=== PATIENT | male | born 1965 | race African-American/Black ===

== ENCOUNTER 2024-12-14 18:50 | Emergency (ER) | payer OTHER ==
[~2024-12-14] VITALS: Ht 177.8 cm; Wt 125.6 kg
[2024-12-14 19:08] VITALS: PULSE 78; TEMP 98.5
[2024-12-14] MEDS ORDERED: IOPAMIDOL 370 MG/ML 100 ML INFUS..BTL INJ ONE (19:45)
[2024-12-14] MEDS: Morphine 4mg INJECTION 4 MG/ML INJ IV ONE ×2 (20:33→22:25)
[2024-12-14] MEDS: HYDROMORPHONE 1MG/1ML INJ IV STA (22:07)
[2024-12-14] MEDS: KETOROLAC TROMETHAMINE 30 MG/ML VIAL IV STA (22:14)
[2024-12-14 22:22] VITALS: RESP 16
[2024-12-14] MEDS ORDERED: HYDROCODON-ACE1 EA11 PO (23:01)
[2024-12-14 23:08] VITALS: BP 130/60; PULSE 76; RESP 18; TEMP 98.7; O2SAT 98
== END 2024-12-14 23:11 | disposition home or self-care (01) ==
LOC: FSED 19:31
DX: R10.30 Lower abdominal pain, unspecified (principal); E66.9 Obesity, unspecified; F17.210 Nicotine dependence, cigarettes, uncomplicated
CPT/HCPCS: 74177; 80053; 81003; 85025; 99284; J1885; J2270; Q9967

== ENCOUNTER 2025-01-03 11:03 | Emergency (ER) | payer OTHER ==
[~2025-01-03] VITALS: Ht 177.8 cm; Wt 123.4 kg
[~2025-01-03 11:03] MED LIST: HYDROCODON-ACE1 EA11 PO
[2025-01-03] MEDS ORDERED: METHOCARBAMOL750 MG PO (11:48)
[2025-01-03] MEDS ORDERED: ULTRAM 50MG50 MG PO (11:48)
[2025-01-03] MEDS: DEXAMETHASONE SOD PHOS INJ 4 MG/ML SDV IM ONE (11:49)
[2025-01-03] MEDS: CYCLOBENZAPRINE HCL 10 MG TAB PO ONE (11:50)
[2025-01-03] MEDS: KETOROLAC TROMETHAMINE 30 MG/ML VIAL IM STA (11:51)
[2025-01-03] MEDS: HYDROCODONE/APAP 5MG-325MG TAB PO ONE (11:51)
[2025-01-03 11:53] VITALS: PULSE 60; RESP 18; TEMP 97.4; O2SAT 99
[2025-01-06] MEDS ORDERED: BACLOFEN10 MG PO (10:58)
[2025-01-06] MEDS ORDERED: PREDNISONE20 MG PO (10:59)
[2025-01-06] MEDS ORDERED: ULTRAM 50MG50 MG PO (11:00)
[2025-01-06] MEDS ORDERED: KETOROLAC TROME10 MG PO (11:04)
== END 2025-01-03 11:57 | disposition home or self-care (01) ==
LOC: FSED 11:07
DX: M54.31 Sciatica, right side (principal); E66.9 Obesity, unspecified; Z96.652 Presence of left artificial knee joint; F17.210 Nicotine dependence, cigarettes, uncomplicated
CPT/HCPCS: 96372; 99283; J1100; J1885

== ENCOUNTER 2025-01-28 20:25 | Emergency (ER) | payer OTHER ==
[~2025-01-28] VITALS: Ht 177.8 cm; Wt 127.9 kg
[~2025-01-28 20:25] MED LIST changes: +BACLOFEN10 MG PO; +KETOROLAC TROME10 MG PO; +METHOCARBAMOL750 MG PO; +PREDNISONE20 MG PO; +ULTRAM 50MG50 MG PO
[2025-01-28 20:29] VITALS: PULSE 84; RESP 18; TEMP 98.7
[2025-01-28] MEDS: SODIUM CHLORIDE 0.9% 500ML 500 ML IV STA (21:26)
[2025-01-28] MEDS: ONDANSETRON HCL INJ 2MG/ML 2ML 2 MG/ML VIAL IV ONE (21:26)
[2025-01-28] MEDS: FAMOTIDINE 20 MG/2 ML VIAL IV ONE (21:26)
[2025-01-28] MEDS: KETOROLAC TROMETHAMINE 30 MG/ML VIAL IV ONE (21:27)
[2025-01-28] MEDS ORDERED: IOPAMIDOL 370 MG/ML 100 ML INFUS..BTL INJ ONE (22:33)
[2025-01-29] MEDS ORDERED: PANTOPRAZOLE SO40 MG PO (00:29)
[2025-01-29 00:50] VITALS: BP 160/82; O2SAT 100
== END 2025-01-29 00:37 | disposition home or self-care (01) ==
LOC: FSED 20:31
DX: R13.10 Dysphagia, unspecified (principal); K20.90 Esophagitis, unspecified without bleeding; I10 Essential (primary) hypertension; E78.5 Hyperlipidemia, unspecified; M54.9 Dorsalgia, unspecified; G89.29 Other chronic pain; E66.9 Obesity, unspecified; Z96.652 Presence of left artificial knee joint; F17.210 Nicotine dependence, cigarettes, uncomplicated
CPT/HCPCS: 70491; 80053; 85025; 96374; 96375; 96376; 99284; J1308; J1885; J2405; J7040; Q9967